=== PATIENT | male | born 1955 | race African-American/Black ===

== ENCOUNTER 2017-05-23 00:37 | Inpatient (IN) ==
--- NOTE | 2017-05-23 01:04 | EKG Report ---
Test Performed on : 05/23/2017 01:01:45 AM Test Reason : side pain Blood Pressure : / mmHG Vent. Rate : 089 BPM Atrial Rate : 089 BPM P-R Int : 198 ms QRS Dur : 082 ms QT Int : 350 ms P-R-T Axes : 039 040 225 degrees QTc Int : 425 ms Normal sinus rhythm. T wave abnormality, consider inferolateral ischemia Abnormal ECG No previous ECGs available Unconfirmed Result
[2017-05-23] MEDS ORDERED: CATAPRES PO ONE (01:10)
[2017-05-23 01:27] LABS: MANUAL DIFF NEEDED? NO
[2017-05-23 01:36] LABS: BASO% 0.3 % (0.0-0.8); EOS# 0.12 X1000 (0.0-0.7); EOS% 1.6 % (0.0-10.0); HEMATOCRIT 40.3 % (42.0-52.0); HEMOGLOBIN 13.7 g/dL (14.0-18.0); IMM GRAN# 0.02 X1000 (0.0-0.04); IMM GRAN% 0.3 % (0.0-0.5); LYMPH# 3.06 X1000 (1.2-3.4); LYMPH% 40.1 % (20.5-51.1); MCH 28.2 PG (27-31); MCV 83.1 FL (81-99); MONO# 0.52 X1000 (0.11-0.59); MONO% 6.8 % (1.7-9.3); MPV 10.4 FL (7.4-10.4); NEUT% 50.9 % (42.2-75.2); PLT 266 X1000 (130-400); RBC 4.85 XMIL (4.7-6.1)
[2017-05-23] MEDS ORDERED: APRESOLINE IV ONE ×2 (01:47→02:21)
--- NOTE | 2017-05-23 02:00 | PROVIDER DOCUMENTATION ---
This chart was entered by Ayesha Sears Scribe, acting as scribe for Glenn Medel MD. HPI-Musculoskeletal Pain/Inj - GENERAL Chief Complaint: Extremity Pain Stated Complaint: SIDE PAIN Time Seen by Provider: 05/23/17 01:05 Source: patient - HX OF PRESENT ILLNESS-MUSKULOSKELTAL Nature of Presenting Problem: 62 Y/O M presents to ED with Extremity Pain. Pt states that he had onset of pain at 10:30pm states 8/10 pain with leeeft arm pain radiating froon neck down shoulder into fingers. Quality of Pain: reports: aching Severity in ED: moderate Onset/Duration: 4-6 hours ago, this evening Timing: still present Any recent injury?: No Locality of Occurance: Home Similar Symptoms Previously?: No Recently seen or treated by another doctor?: No - UPPER EXTREMITY PAIN/INJURY Extremities Pain Location: shoulder: right, arm: right, hand: right Context / Method of Injury: reports: unknown Associated Symptoms: reports: numbness in upper ext Review of Systems - Adult - REVIEW OF SYSTEMS - ADULT Constitutional: denies: chills, fever Eyes: reports: no symptoms reported Ears, Nose, Mouth & Throat: reports: no symptoms reported Cardiovascular: reports: no symptoms reported Respiratory: reports: no symptoms reported Gastrointestinal: reports: no symptoms reported Genitourinary: reports: no symptoms reported Musculoskeletal: reports: joint pain, muscle aches. denies: bone pain, back pain Integumentary: reports: no symptoms reported Neurological: reports: no symptoms reported Psychiatric: reports: no symptoms reported Endocrine: reports: no symptoms reported Hematologic/Lymphatic: reports: no symptoms reported Allergic/Immunologic: reports: no symptoms reported All Other Systems: Reviewed and Negative Past History - Adult - PAST MEDICAL HISTORY-ADULT Review of Records: reports: Old Records Reviewed, Nursing Assessment Review, Medications Reviewed, Social history reviewed & non-contributory. Major Childhood Illnesses: reports: denies history Cardiovascular: reports: denies history Respiratory: reports: denies history Gastrointestinal: reports: denies history Obstetrical/Gynecological: reports: denies history Genitourinary: reports: denies history Musculoskeletal: reports: denies history Neurological: reports: denies history Endocrine/Immune: reports: denies history Other Conditions: reports: denies history - IMMUNIZATION STATUS Childhood Immunizations: See Nurse Assessment Flu Vaccine: See Nurse Assessment - FAMILY HISTORY Family History: reviewed, not pertinent Physical Exam-Injury Related - Physical Exam-Injury Related General Appearance: appears well, alert, no apparent distress Eyes: PERRL/EOMI, pink conjunctivae, anisocoria Head, Ears, Nose, Mouth & Throat: moist mucous membranes, normal ENT inspection , TMs normal Neck: full range of motion, supple, normal inspection Respiratory: chest non-tender, lungs clear, normal breath sounds Cardiovascular: normal peripheral pulses, regular rate, rhythm Abdominal Exam: non tender, soft Lymphatic: no adenopathy Back Exam: normal inspection Extremity: normal range of motion Integumentary: normal color, warm/dry Neurologic: grossly normal Psych/Mental Status: normal mood/affect, normal thought content, normal thought process, oriented x 3 Progress - PLAN OF CARE/RESULTS Progress/Plan/Lab Results: Vital Signs - 8 hr 05/23/17 00:42 05/23/17 01:10 05/23/17 02:41 Temperature 98.8 F Pulse Rate 88 88 94 H Respiratory Rate 20 21 15 Blood Pressure 212/98 215/124 201/96 O2 Sat by Pulse Oximetry 97 99 99 05/23/17 03:39 05/23/17 03:54 Temperature Pulse Rate 83 83 Respiratory Rate 18 20 Blood Pressure 185/78 156/87 O2 Sat by Pulse Oximetry 99 98 Laboratory Results - last 24 hr 05/23/17 05/23/17 05/23/17 01:20 01:20 01:20 WBC 7.64 RBC 4.85 Hgb 13.7 L Hct 40.3 L MCV 83.1 MCH 28.2 MCHC 34.0 RDW Std Deviation 13.8 Plt Count 266 MPV 10.4 Immature Gran % (Auto) 0.3 Neut % (Auto) 50.9 Lymph % (Auto) 40.1 [place] % (Auto) 6.8 Eos % (Auto) 1.6 Baso % (Auto) 0.3 Immature Gran # (Auto) 0.02 Neut # (Auto) 3.90 Lymph # (Auto) 3.06 [place] # (Auto) 0.52 Eos # (Auto) 0.12 Baso # (Auto) 0.02 Sodium 142 Potassium 3.7 Chloride 108 H Carbon Dioxide 22 L Anion Gap 12 BUN 11 Creatinine 1.2 Estimated GFR/1.73 m2 > 60 BUN/Creatinine Ratio 9 Glucose 257 H Calculated Osmolality 291 Calcium 9.0 Total Bilirubin 0.20 AST 15 ALT 13 Alkaline Phosphatase 80 Creatine Kinase 167 Troponin T Total Protein 7.9 Albumin 4.0 Globulin 4.0 Albumin/Globulin Ratio 1.0 Urine Source Urine Color Urine Clarity Urine pH Ur Specific [place] Urine Protein Urine Ketones Urine Blood Urine Nitrite Urine Bilirubin Urine Urobilinogen Urine Microscopic RBC Urine WBC Urine Microscopic WBC Ur Epithelial Cells Urine Bacteria Urine Glucose 05/23/17 05/23/17 05/23/17 01:20 02:30 03:45 WBC RBC Hgb Hct MCV MCH MCHC RDW Std Deviation Plt Count MPV Immature Gran % (Auto) Neut % (Auto) Lymph % (Auto) [place] % (Auto) Eos % (Auto) Baso % (Auto) Immature Gran # (Auto) Neut # (Auto) Lymph # (Auto) [place] # (Auto) Eos # (Auto) Baso # (Auto) Sodium Potassium Chloride Carbon Dioxide Anion Gap BUN Creatinine Estimated GFR/1.73 m2 BUN/Creatinine Ratio Glucose Calculated Osmolality Calcium Total Bilirubin AST ALT Alkaline Phosphatase Creatine Kinase Troponin T < 0.010 < 0.010 Total Protein Albumin Globulin Albumin/Globulin Ratio Urine Source CLEAN CATCH Urine Color YELLOW Urine Clarity CLEAR Urine pH 6.5 Ur Specific [place] 1.010 Urine Protein 1+(30 mg/dL) A Urine Ketones NEGATIVE Urine Blood TRACE Urine Nitrite NEGATIVE Urine Bilirubin NEGATIVE Urine Urobilinogen NORMAL Urine Microscopic RBC <10 Urine WBC NEGATIVE Urine Microscopic WBC <10 Ur Epithelial Cells <10 Urine Bacteria 1+ Urine Glucose 3+(500 mg/dL) A Orders Category Date Time Status IV [Saline Loc] NOW Care 05/23/17 01:13 Active cxr [CHEST-1 VIEW] [RAD] Stat Exams 05/23/17 01:14 Taken CBC WITH ELECTRONIC DIFF [HEME] Stat Lab 05/23/17 01:20 Completed CK PROFILE [SP CHEM] Stat Lab 05/23/17 01:20 Completed CMP [COMPREHENSIVE METABOLIC PANEL] [CHEM] Stat Lab 05/23/17 01:20 Completed TROPONIN T Stat Lab 05/23/17 01:20 Completed TROPONIN T Stat Lab 05/23/17 03:45 Completed UA NIMS W/REFLEX CULT PL [URINALYSIS] Routine Lab 05/23/17 02:30 Completed Clonidine [Catapres] Med 05/23/17 01:10 Discontinued 0.2 mg PO NOW ONE Hydralazine [Apresoline] Med 05/23/17 01:47 Discontinued 10 mg IV NOW ONE Hydralazine [Apresoline] Med 05/23/17 02:21 Discontinued 10 mg IV NOW ONE Insulin Glargine [Lantus] Med 05/23/17 03:59 Discontinued 50 unit SUBQ NOW ONE Insulin Human Regular [Humulin R] Med 05/23/17 03:47 Discontinued 4 unit SUBQ NOW ONE Nitroglycerin 50 mg/D5w Med 05/23/17 02:52 Active 50 mg in 250 ml IV 10 microgm/min Nitroglycerin Sl [Nitroglycerin] Med 05/23/17 02:44 Discontinued 0.4 mg .ROUTE .STK-MED ONE Nitroglycerin Sl [Nitroglycerin] Med 05/23/17 02:43 Discontinued 0.4 mg SL NOW ONE EKG [EKG] Stat Ther 05/23/17 00:55 Draft EKG [EKG] Stat Ther 05/23/17 02:46 Draft Result Diagrams: 05/23/17 01:20 05/23/17 01:20 - REASSESSMENT Reassessment #1 Time Reassessed: 03:57 Status: improving (pt had improvement of pain, then it recurred, but went away with a nitroglycerin drip. BP improved some with the drip as well) - CONSULTS/PCP/HOSPITALIST Notification #1 *Consult/PCP/Hospitalist*: Dr Colon Time Discussed: 04:21 Reason/Comments: agrees to send to cath, transfer to [facility]2 Consult: Dr Majano Time Discussed: 04:21 (will accept and see about bed) Departure - Departure Date of Disposition Decision: 05/23/17 Time of Disposition Decision: 04:22 DIAGNOSIS: Angina at rest Disposition: HOME 01 Certified Medical Emergency: Emergent Condition: Serious Referrals and Follow-Ups: Alonzo Jeffery MD [Primary Care Provider] - - Critical Care Note This patient required my direct & personal management of CC.: Yes Total Time (mins): 20 Critical Care Statement: This patient required my direct personal management to treat or rule out processes, the absence of which, could potentiallly result in sudden, clinically significant life or limb threatening deterioration. This chart was documented by the indicated scribe, (Ayesha Sears Scribe) and accurately reflects the services I performed and decisions made by me, Glenn Medel MD, as attested by the provider's signature.
--- NOTE | 2017-05-23 02:00 | ED EKG INTERP ---
This chart was entered by Ayesha Sears Scribe, acting as scribe for Glenn Medel MD. EKG Interpretation - EKG Time of EKG reading by physician:: 01:01 EKG Read and Signed by:: Glenn Medel EKG Interpretation (*Must complete 3 of following elements*): Normal Rate: 89 Rhythm: NSR Comments: Abnormal ECG, T wave abnormality, consider inferolateral ischemia This chart was documented by the indicated scribe, (Ayesha Sears Scribe) and accurately reflects the services I performed and decisions made by me, Glenn Medel MD, as attested by the provider's signature.
[2017-05-23 02:37] LABS: AGAP 12; ALKALINE PHOSPHATASE 80 U/L (32-122); BUN 11 mg/dL (8-22); CHLORIDE 108 mmol/L (98-107); COSMO 291; GOT 15 U/L (10-34); GPT 13 U/L (10-44); POTASSIUM 3.7 mmol/L (3.5-5.1); SODIUM 142 mmol/L (136-145); TCO2 22 mmol/L (25-35); TOTAL PROTEIN 7.9 g/dL (6.3-8.3)
[2017-05-23] MEDS ORDERED: NITROGLYCERIN SL ONE (02:43)
[2017-05-23] MEDS ORDERED: NITROGLYCERIN ONE (02:44)
[2017-05-23 02:56] LABS: URINE CULTURE PL NEEDED? NO
--- NOTE | 2017-05-23 03:09 | EKG Report ---
Test Performed on : 05/23/2017 03:06:00 AM Test Reason : arm pain Blood Pressure : / mmHG Vent. Rate : 092 BPM Atrial Rate : 092 BPM P-R Int : 180 ms QRS Dur : 080 ms QT Int : 360 ms P-R-T Axes : 089 025 187 degrees QTc Int : 445 ms Normal sinus rhythm. T wave abnormality, consider inferolateral ischemia Abnormal ECG When compared with ECG of 23-MAY-2017 01:01, (Unconfirmed) No significant change was found Unconfirmed Result
[2017-05-23] MEDS: NITROGLYCERIN 50 MG/D5W 50 MG/250 ML IV.SOLN IV SCH (03:10)
[2017-05-23 03:38] LABS: BILIRUBIN URINE NEGATIVE (NEGATIVE); BLOOD URINE TRACE (NEGATIVE); CLARITY CLEAR (CLEAR); COLOR YELLOW; LEUKOCYTES URINE NEGATIVE (NEGATIVE); NITRITE URINE NEGATIVE (NEGATIVE); PH URINE 6.5; PROTEIN URINE 1+(30 mg/dL) mg/dL (NEGATIVE); UROBILINOGEN URINE NORMAL
[2017-05-23] MEDS ORDERED: HUMULIN R SUBQ ONE (03:47)
[2017-05-23 03:53] LABS: URINE EPITHELIAL CELLS <10 /HPF (<10); URINE RBC <10 /HPF (<10); URINE SOURCE CLEAN CATCH; URINE WBC <10 /HPF (<10)
[2017-05-23] MEDS ORDERED: LANTUS SUBQ ONE (03:59)
[2017-05-23] MEDS ORDERED: SALINE LOCK IV FLUID XX ONE (06:15)
[2017-05-23] MEDS ORDERED: TYLENOL PO PRN (06:15)
[2017-05-23] MEDS ORDERED: ZOFRAN IV PRN (06:15)
--- NOTE | 2017-05-23 06:41 | HISTORY AND PHYSICAL ---
CHIEF COMPLAINT: Left arm pain. PRIMARY CARE PHYSICIAN: Alonzo Jeffery MD HISTORY OF PRESENTING ILLNESS: This is a 62-year-old male with a history of hypertension, diabetes mellitus type 2 and hyperlipidemia. Had initially presented to [place] [facility] with complaint of severe pain in his left arm. He states that it was like a squeezing sensation and it was not subsiding. Patient subsequently had come to [place] [facility] where he was evaluated and it was noted that his blood pressure was markedly elevated. He continued to have persistent left arm pain. He was put on a nitroglycerin drip and his left arm pain seemed to improve. His blood pressure also had improved. Subsequently, his case was discussed with Cardiology by ER physician and the patient was subsequently transferred to [facility] [place] ICU for further evaluation and management. At the time of my examination, he states that his pain in his arm has improved somewhat. He denied having any headache, visual changes, nausea, vomiting, diarrhea, shortness of breath, hemoptysis or weight changes, but states that he still does not feel well. PAST MEDICAL HISTORY: Includes hypertension, diabetes mellitus type 2, hyperlipidemia, GERD. PAST SURGICAL HISTORY: Right knee surgery, right rotator cuff surgery, back surgeries. ALLERGIES: No known drug allergies. CURRENT MEDICATIONS: As listed in MAR. SOCIAL HISTORY: He denies any history of smoking. Admits to social alcohol use. Denies any illicit drug use. FAMILY HISTORY: Positive for coronary artery disease in mother. REVIEW OF SYSTEMS: Twelve point review of systems is listed as in HPI. Other systems negative. PHYSICAL EXAMINATION: GENERAL: Cooperative, friendly male. He is resting more comfortably now. VITAL SIGNS: Temperature 98.8 degrees, pulse 88, respirations 20, blood pressure 212/98. He is saturating 97%. HEENT: Atraumatic, normocephalic. Extraocular movements intact. PERRLA. NECK: Supple. CHEST: Clear to auscultation. CARDIOVASCULAR: Regular rate and rhythm. ABDOMEN: Soft, nontender. Positive bowel sounds. EXTREMITIES: No edema. NEURO: He is awake, alert, oriented x3. : No bladder distention. SKIN: Warm and good turgor. LABORATORIES AND STUDIES: Troponin is 0.010. Sodium 142, potassium 3.7 chloride 108, CO2 22, BUN is 11, creatinine 1.2, glucose is 257. WBC 7.64, hemoglobin 13.7, hematocrit 40.3, platelets is 266,000. ASSESSMENT: A 62-year-old male with a history of hypertension, diabetes mellitus type 2 and hyperlipidemia had presented to the emergency department with 1-day history of acute onset of left arm pain. He was noted to have markedly elevated blood pressure. He was put on a nitroglycerin drip at [place] [facility] and subsequently transferred to [facility] [place] ICU for further evaluation and management. 1. Suspected acute coronary syndrome. 2. Hypertension, uncontrolled. 3. Diabetes mellitus type 2. 4. Hyperlipidemia. PLAN: 1. The patient will be admitted to ICU. 2. We will continue with cardiac workup. Check EKG, serial cardiac enzymes. Have patient continue on aspirin. We will continue patient on a nitroglycerin drip. 3. Cardiology has already been consulted. 4. We will monitor blood pressure closely. 5. We will continue patient on sliding scale insulin regimen. Monitor blood glucose. 6. Restart his home medications. 7. We will put patient on DVT prophylaxis with Lovenox. 8. We will continue to follow and reassess. cc: Luis Daniel Majano MD
[2017-05-23] MEDS: HUMULIN R SUBQ SCH ×4 (07:15→20:41)
--- NOTE | 2017-05-23 07:20 | Diag Imaging Result Doc PS360 ---
EXAM: CHEST-1 VIEW HISTORY: htn/ left arm pain TECHNIQUE: AP portable erect at 0118 COMMENT: There are no previous studies. The heart size is the upper limits of normal. The lungs are clear. IMPRESSION: Borderline cardiomegaly. Electronically signed by Trey Bang 05/23/2017 7:17 AM
[2017-05-23] MEDS: LOVENOX SUBQ SCH (08:28)
[2017-05-23] MEDS ORDERED: CATAPRES PO SCH (09:00)
[2017-05-23] MEDS: ASPIRIN PO SCH (09:31)
[2017-05-23] MEDS: ZYLOPRIM PO SCH (09:32)
[2017-05-23] MEDS: PRAVACHOL PO SCH (09:32)
[2017-05-23] MEDS: TOPROL XL PO SCH ×2 (09:32→20:39)
[2017-05-23] MEDS: PRILOSEC PO SCH (09:32)
[2017-05-23] MEDS ORDERED: DIOVAN PO SCH (11:15)
[2017-05-23] MEDS ORDERED: LEXISCAN ONE (12:09)
--- NOTE | 2017-05-23 14:00 | CONSULTATION ---
DATE OF CONSULTATION: 05/23/2017 IMPRESSION: 1. Persistent left arm discomfort for an hour and a half last night. Overall presentation atypical for myocardial ischemia. Patient previously had chest discomfort 2 years ago when he had angioplasty of a diagonal branch. He has not had recurrence of such chest discomfort. 2. Hypertension with blood pressure elevated on presentation. 3. Atherosclerotic coronary disease. Coronary angiography in 2014 for evaluation of chest discomfort demonstrated moderate 40%-50% left anterior descending stenosis and a severe stenosis in a diagonal branch which was calcified. He underwent percutaneous coronary intervention on diagonal branch. He has not had recurrence of such chest discomfort. 4. Type 2 diabetes mellitus. 5. Gastroesophageal reflux. 6. Hyperlipidemia. 7. Obesity. 8. Degenerative disease of the spine with history of 2 previous upper thoracic spine surgeries, 9. Bilateral carpal tunnel. RECOMMENDATIONS: 1. Patient relates his recent discovery of cough related to LAURY inhibitor and was started on which is expensive. Will switch him to valsartan. Continue thiazide and diltiazem. 2. Reassess coronary status with Lexiscan sestamibi study. 3. If Lexiscan study stable, consider further evaluation in direction of radiculopathy, possible from cervical spine disease or carpal tunnel. HISTORY: This 62-year-old, -[place] male with past history of obesity, hypertension, hyperlipidemia, type 2 diabetes mellitus and previous angioplasty of severe stenosis in 1st diagonal 2 years ago was admitted to the emergency room last night for evaluation of left arm discomfort and hypertension. He relates he had chest discomfort 2 years ago and evaluation culminated in coronary angiography and angioplasty of severe calcified stenosis in 1st diagonal. He has not had recurrence of chest discomfort since that time. He has been followed by Dr. Kidd. He has had recent change in his antihypertensive medications with discontinuation of lisinopril/hydrochlorothiazide and initiation of samples at 80 mg daily. Last night, just as he was lying down for bed, he started to have left arm discomfort. Discomfort extended all the way to his fingertips and seemed to get worse when he was lying down. Discomfort persisted, and he came to the emergency room for evaluation. He was found to be hypertensive. There was no chest pain. He was started on intravenous nitroglycerin and transferred from [facility] room to [facility] ICU. His chest symptoms lasted at least 90 minutes. He is admittedly somewhat sedentary. PAST MEDICAL HISTORY: 1. Obesity. 2. Hypertension. 3. Type 2 diabetes mellitus. 4. Hyperlipidemia. 5. Atherosclerotic coronary disease as outlined above. 6. Bilateral carpal tunnel syndrome. 7. Gastroesophageal reflux disease. 8. Gout. 9. Degenerative disease of the spine. PAST SURGICAL HISTORY: Two arthroscopic right knee procedures, right rotator cuff surgery, and two upper thoracic spine surgical procedures. ALLERGIES: He is allergic or intolerant to lisinopril which causes cough. MEDICATIONS: Prior to admission as listed. 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 He does not smoke. FAMILY HISTORY: Positive for coronary artery disease. REVIEW OF SYSTEMS: Pulmonary: Negative. Gastrointestinal: Noteworthy for gastroesophageal reflux but, otherwise, negative. Constitutional: Negative. Remaining review of systems negative with 14 total systems reviewed. PHYSICAL EXAMINATION: General: This is an obese, middle-aged, -[place] male in no distress. Vital Signs: As recorded. Blood pressure 181/83, heart rate 80 and regular with ECG monitor showing sinus rhythm. HEENT: Extraocular movements intact. Mucous membranes are moist. Neck: Supple without jugular venous distention. No carotid bruits. Chest: Clear to auscultation. Cardiac: A regular rate and rhythm without appreciable murmur or gallop. Abdomen: Soft, nontender. Bowel sounds are normal. Extremities: Without edema. Neurologic: Exam reveals him to be alert and fully oriented. Speech is fluent. Moves all 4 extremities equally well. Skin: Warm and dry. Psychiatric: Exam reveals his mood to be appropriate. DIAGNOSTIC DATA: ECG demonstrates sinus rhythm and nonspecific ST and T-wave abnormality. Serial troponins are normal. cc: MD Go Van MD
[2017-05-23] MEDS: CARDIZEM CD PO SCH (14:05)
[2017-05-23] MEDS: PLAVIX PO SCH (14:05)
[2017-05-23] MEDS: HYDROCHLOROTHIAZIDE PO SCH (14:05)
[2017-05-23] MEDS ORDERED: DIOVAN PO ONE (18:41)
--- NOTE | 2017-05-23 19:20 | Diag Imaging Result Document ---
PROCEDURE NAME: MYOCARDIAL PERF SCAN, STR/REST - 05/23/2017 INDICATION: A 62-year-old male with coronary heart disease, chest pain, previous angioplasty to diagonal branch of LAD. STUDY: Rest-stress Lexiscan myocardial perfusion study. DESCRIPTION: The patient came into the Nuclear Lab, received a rest injection of technetium 99 sestamibi 15 millicuries. Multiple tomographic views of the cardiac structure were obtained at rest. Subsequently the patient underwent infusion of Lexiscan 0.4 mg. At peak infusion, injected with technetium 99 sestamibi 45.7 millicuries. Multiple tomographic views of the cardiac structure were obtained following the completion of the protocol. SUMMARY OF ELECTROCARDIOGRAPHIC PORTION OF STUDY: Resting electrocardiogram showed sinus rhythm, rate 71 beats per minute. Resting blood pressure 152/81. Resting ECG shows diffuse repolarization abnormality consistent with LVH. The heart rate increased to 88 beats per minute. Blood pressure went up to 170/73. The patient reported no chest pain, shortness of breath, or palpitations. EKG showed no significant changes. Following the completion of the infusion, the heart rate and blood pressure returned back to baseline. IMPRESSION: In summary, the electrocardiographic response to infusion of Lexiscan is deemed to be inconclusive due to the presence of extensive repolarization abnormality at rest. SUMMARY OF MYOCARDIAL PERFUSION PORTION OF STUDY: Poststress tomographic views of the left ventricle showed a very subtle and mild decreased uptake of radiotracer in the basal to mid anterolateral segment of the left ventricle. The rest images suggest reversibility of this defect. The polar plots revealed the same. There is a suggestion of inducible ischemia of mild degree involving the basal to mid anterolateral portion of the left ventricle. This would correspond to a limited area of myocardium. Again, this finding is very subtle. No significant scar is noted. Gated SPECT shows normal left ventricular systolic function. Ejection fraction estimated at 67% with normal ventricular volumes. No wall motion abnormality. Lung-heart ratio is normal. TID is normal. IMPRESSION: In summary, this study showed: 1. Inconclusive electrocardiographic response to infusion of Lexiscan. 2. Mildly abnormal poststress myocardial perfusion scan. There is a scintigraphic suggestion of inducible ischemia of mild degree involving the basal to mid anterolateral portion of the left ventricle. 3. Normal left ventricular systolic function. Ejection fraction estimated at 67% with normal ventricular volumes. No wall motion abnormality. Clinical correlation recommended. cc: MD Yumiko Davies PA
--- NOTE | 2017-05-23 20:34 | ECHO REPORT ---
ORDER DATE: 05/23/2017 INTERPRETING PHYSICIAN: Dr. Colon REQUESTING PHYSICIAN: CLINICAL INDICATIONS: Chest pain, coronary heart disease. M-MODE MEASUREMENTS: Right ventricle: 2.6 cm. Left ventricle end diastole: 4.3 cm. Left ventricle end systole: 2.9 cm. Posterior wall: 1.2 cm. Interventricular septum: 1.2 cm. Left atrium: 3.7 cm. Aortic root: 2.9 cm. SUMMARY OF 2-DIMENSIONAL IMAGING: The left ventricular function is normal. Ejection fraction estimated at 66%. There is no wall motion abnormality. The right ventricle appears to be normal. The pulmonic valve looks normal. Color flow mapping unremarkable. The aortic valve has 3 cusps. Color flow mapping unremarkable. The mitral valve looks normal. Color flow mapping unremarkable. Pulse wave doppler interrogation of mitral inflow shows that the E/A ratio is normal. Tissue Doppler of septal and lateral mitral annulus averages 6.5 cm. No diastolic dysfunction is present. The tricuspid valve looks normal. Color flow mapping unremarkable. There is no pericardial effusion, masses or thrombus. There is no pulmonary hypertension. IMPRESSION: In summary, this study shows: 1. Excellent left ventricular systolic function. Ejection fraction 66%. 2. No evidence of any significant valvular abnormality. 3. Normal diastolic function. 4. Normal pulmonary pressure. cc: MD Luis Daniel Davies MD Cesar Garcia-Rodriguez, MD MTDD
[2017-05-23] MEDS: CATAPRES PO SCH (20:39)
[2017-05-24] MEDS: NITROGLYCERIN 50 MG/D5W 50 MG/250 ML IV.SOLN IV SCH (02:11)
[2017-05-24 05:54] LABS: MANUAL DIFF NEEDED? NO
[2017-05-24 05:57] LABS: BASO% 0.4 % (0.0-0.8); EOS# 0.15 X1000 (0.0-0.7); EOS% 2.1 % (0.0-10.0); HEMATOCRIT 40.1 % (42.0-52.0); HEMOGLOBIN 13.5 g/dL (14.0-18.0); IMM GRAN# 0.02 X1000 (0.0-0.04); IMM GRAN% 0.3 % (0.0-0.5); LYMPH# 2.76 X1000 (1.2-3.4); LYMPH% 38.4 % (20.5-51.1); MCH 28.1 PG (27-31); MCHC 33.7 g/dL (33-37); MCV 83.4 FL (81-99); MONO# 0.54 X1000 (0.11-0.59); MONO% 7.5 % (1.7-9.3); MPV 10.4 FL (7.4-10.4); NEUT% 51.3 % (42.2-75.2); PLT 248 X1000 (130-400); RBC 4.81 XMIL (4.7-6.1)
[2017-05-24] MEDS: PRILOSEC PO SCH (06:02)
[2017-05-24] MEDS: LOVENOX SUBQ SCH (06:02)
[2017-05-24] MEDS: HUMULIN R SUBQ SCH ×4 (06:03→22:12)
[2017-05-24 06:10] LABS: HDL 36 mg/dL (35-55); LDL 43 mg/dL; TRIGLYCERIDES 177 mg/dL (39-160); VLDL 35 mg/dL
[2017-05-24] MEDS: PRAVACHOL PO SCH (08:57)
[2017-05-24] MEDS: ASPIRIN PO SCH (08:57)
[2017-05-24] MEDS: CARDIZEM CD PO SCH (08:57)
[2017-05-24] MEDS: TOPROL XL PO SCH (08:58)
[2017-05-24] MEDS: PLAVIX PO SCH (08:58)
[2017-05-24] MEDS: ZYLOPRIM PO SCH (08:58)
[2017-05-24] MEDS: CATAPRES PO SCH (08:58)
[2017-05-24] MEDS: HYDROCHLOROTHIAZIDE PO SCH (08:58)
[2017-05-24] MEDS: DIOVAN PO SCH (08:59)
[2017-05-24] MEDS ORDERED: HYDROCHLOROTHIAZIDE PO SCH (10:30)
[2017-05-24] MEDS ORDERED: COREG PO SCH (10:30)
[2017-05-24] MEDS ORDERED: HYDROCHLOROTHIAZIDE PO ONE (11:00)
[2017-05-24 11:39] LABS: HEMOGLOBIN A1C 8.3 % (4.8-6.0)
--- NOTE | 2017-05-24 12:40 | PROGRESS NOTE ---
DATE: 05/24/2017 SUBJECTIVE: Patient reports feeling fine. No chest pain. No left arm pain. No shortness of breath. No nausea or vomiting. OBJECTIVE: Vital Signs: Temperature 98.6, heart rate 71, respiratory 17, blood pressure 171/107. O2 saturation 97% on room air. General Examination: This is a 62-year-old -[place] male lying in bed in no acute distress. HEENT: Head is normocephalic and atraumatic. Anicteric sclerae and pale conjunctivae. Mucous membranes moist. Neck supple. No JVD noted. No carotid bruits. No lymphadenopathy. No thyromegaly. Cardiovascular: S1, S2 heard. No murmurs, gallops, or rubs. Regular rate and rhythm. Respiratory clear bilaterally to auscultation. No work of breathing or using accessory muscles. Abdomen is soft, nontender to palpation. Bowel sounds present. No organomegaly. Extremities: No clubbing, cyanosis, or edema. Peripheral pulses present in both legs. Neurologic: Patient is alert and oriented x3. Able to move her extremities. Cranial nerves 2-12 grossly normal. LABORATORY DATA: Reviewed. ASSESSMENT AND PLAN: 1. Chest pain. That condition is resolved. The patient underwent a stress test which was basically unremarkable. At this point, Cardiology is not planning to do any more workup. 2. Uncontrolled hypertension. Blood pressure is still high in the range of 170s and 180s with also high diastolic blood pressure between 90s and 100. At this time, we are going to make some changes to his current medications and see how he does tomorrow. 3. Diabetes mellitus, type 2. We will continue with the sliding scale insulin. 4. Hyperlipidemia, well controlled. We will continue with home medications. cc: Go Dodson MD
[2017-05-24] MEDS ORDERED: CATAPRES PO PRN (13:57)
[2017-05-24] MEDS: CATAPRES PO PRN ×2 (14:33→23:56)
--- NOTE | 2017-05-24 16:40 | PROGRESS NOTE ---
DATE: 05/24/2017 SUBJECTIVE: Patient continues without chest discomfort, dyspnea, or arm discomfort. Blood pressure has remained elevated and changes were made this morning. OBJECTIVE: Vital Signs: Blood pressure 198/96, heart rate 62 and regular. ECG monitor showing sinus rhythm. Oxygen saturation 99% on room air. Neck: There is no significant jugular venous distention. Chest: Clear to auscultation. Cardiac: Reveals a regular rate and rhythm, without appreciable murmur or gallop. There is no evidence of peripheral edema. DIAGNOSTIC DATA: Lexiscan sestamibi study demonstrates a small equivocal area of reversibility in the basal to mid anterolateral region. Left ventricular ejection fraction normal. This would appear to constitute a low risk study, but potentially may indicate restenosis or occlusion of previously treated diagonal branch occlusion with angioplasty in the past. IMPRESSIONS: 1. Atherosclerotic coronary artery disease. Lexiscan sestamibi result is low risk, but does not entirely exclude some inducible ischemia in distribution of diagonal branch. Hewitt of ischemia would appear quite limited. 2. Left arm discomfort atypical for myocardial ischemia. Despite persistent discomfort for 1-1/2 hours, serial troponins are normal and discomfort would seem more likely to be noncardiac, possibly related to radiculopathy. 3. Hypertension with elevated blood pressure. The patient's compliance with sodium restriction is suspect. 4. Type 2 diabetes mellitus. 5. Hyperlipidemia. RECOMMENDATIONS: 1. Would continue on increased dose of valsartan 320 mg daily. 2. Increase hydrochlorothiazide to 50 mg daily. 3. Switch metoprolol to carvedilol 25 mg twice daily and taper off clonidine. 4. Importance of sodium restriction discussed with the patient. 5. Continue medical management of patient's coronary atherosclerosis at this time. Once blood pressure better controlled, it is reasonable for him to be discharged home. His regular fixed income manager is Dr. Kidd and followup with him should be arranged in a few weeks. cc: MD Go Van MD
[2017-05-24] MEDS: LANTUS SUBQ SCH (22:11)
[2017-05-24] MEDS: APRESOLINE PO SCH (22:12)
[2017-05-25] MEDS: CATAPRES PO PRN ×3 (01:07→18:38)
[2017-05-25] MEDS ORDERED: APRESOLINE IV ONE (01:24)
[2017-05-25] MEDS: LOVENOX SUBQ SCH (06:16)
[2017-05-25] MEDS: HUMULIN R SUBQ SCH ×4 (06:16→22:01)
[2017-05-25] MEDS: APRESOLINE PO SCH ×3 (06:16→22:02)
[2017-05-25] MEDS: PRILOSEC PO SCH (06:16)
[2017-05-25] MEDS: HYDROCHLOROTHIAZIDE PO SCH (09:32)
[2017-05-25] MEDS: DIOVAN PO SCH (09:32)
[2017-05-25] MEDS: COREG PO SCH ×2 (09:32→22:01)
[2017-05-25] MEDS: ASPIRIN PO SCH (09:32)
[2017-05-25] MEDS: PRAVACHOL PO SCH (09:32)
[2017-05-25] MEDS: PLAVIX PO SCH (09:33)
[2017-05-25] MEDS: ZYLOPRIM PO SCH (09:34)
[2017-05-25] MEDS: NORVASC PO SCH ×2 (09:50→22:02)
--- NOTE | 2017-05-25 11:27 | PROGRESS NOTE ---
DATE: 05/25/2017 SUBJECTIVE: Patient reports feeling fine. No chest pain reported. No shortness of breath. No nausea or vomiting. OBJECTIVE: Vital Signs: Temperature 98.3 degrees, heart rate 84, respiratory rate 16, blood pressure 175/84. O2 saturation 93% on room air. General Examination: This is a 62-year-old male, lying in bed, in no acute distress. HEENT: Head is normocephalic, atraumatic. Anicteric sclerae and pale conjunctivae. Mucous membranes moist. Neck: Supple. No JVD noted. No carotid bruits. No lymphadenopathy. No thyromegaly. Cardiovascular: S1-S2 heard. No murmurs, gallops, or rubs. Regular rate and rhythm. Respiratory: Clear bilaterally to auscultation. No work of breathing or using accessory muscles. Abdomen: Soft, nontender to palpation. Bowel sounds present. No organomegaly. Extremities: No clubbing, cyanosis, or edema. Peripheral pulses present in both legs. Neurological: The patient is alert and oriented x3. Moves 4 extremities. Cranial nerves 2-12 grossly normal. LABORATORY DATA: Reviewed. ASSESSMENT AND PLAN: 1. Chest pain. That condition is completely resolved. Stress test was low risk. No further workup planned by Cardiology. 2. Uncontrolled hypertension. 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 So we have made some changes to his medications. Namely we have started him on Coreg 25 mg p.o. b.i.d. Also, we have stopped Cardizem CD and started him amlodipine 5 mg p.o. b.i.d. and also hydrochlorothiazide has been increased to 50 mg daily. 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 3. Diabetes mellitus type 2. We will continue with the sliding scale insulin. 4. Hyperlipidemia. Well controlled. We will continue with home medications. cc: Go Dodson MD
--- NOTE | 2017-05-25 20:43 | PROGRESS NOTE ---
DATE: 05/25/2017 SUBJECTIVE: Patient continues without chest discomfort, arm discomfort, or dyspnea on room air. OBJECTIVE: Vital signs: Blood pressure 174/95. Heart rate 83 and regular. Neck: There is no significant jugular venous distention. Chest: Clear to auscultation. Cardiac: Exam reveals a regular rate and rhythm without appreciable murmur or gallop. There is no evidence of peripheral edema. IMPRESSION: 1. Recent left arm discomfort. The patient has not had chest discomfort. No evidence of myocardial insulin on serial cardiac enzymes. Stress myocardial perfusion imaging suggests limited ischemic burden. Continued medical management appears most reasonable. 2. Hypertension. Blood pressure is still elevated. Agree with changes made with increase in thiazide, addition of carvedilol, and maximum dose valsartan. Switching to amlodipine 10 mg daily also appropriate. 3. Type 2 diabetes mellitus. 4. Hyperlipidemia. RECOMMENDATIONS: 1. Continue current cardiovascular regimen unchanged with changes made by Dr. Gamboa. 2. Continue medical management of coronary disease. cc: MD Go Van MD
[2017-05-25] MEDS: LANTUS SUBQ SCH (22:01)
[2017-05-26] MEDS: CATAPRES PO PRN (01:25)
[2017-05-26] MEDS: PRILOSEC PO SCH (05:42)
[2017-05-26] MEDS: LOVENOX SUBQ SCH (05:42)
[2017-05-26] MEDS: APRESOLINE PO SCH (05:42)
[2017-05-26] MEDS: HUMULIN R SUBQ SCH (05:43)
[2017-05-26 08:16] VITALS: BP 143/72
[2017-05-26] MEDS: PLAVIX PO SCH (09:37)
[2017-05-26] MEDS: NORVASC PO SCH (09:37)
[2017-05-26] MEDS: ASPIRIN PO SCH (09:37)
[2017-05-26] MEDS: PRAVACHOL PO SCH (09:37)
[2017-05-26] MEDS: COREG PO SCH (09:37)
[2017-05-26] MEDS: DIOVAN PO SCH (09:37)
[2017-05-26] MEDS: HYDROCHLOROTHIAZIDE PO SCH (09:37)
[2017-05-26] MEDS: ZYLOPRIM PO SCH (09:38)
--- NOTE | 2017-05-27 09:31 | DISCHARGE SUMMARY ---
ADMISSION DATE: 05/23/2017 DISCHARGE DATE: 05/26/2017 CONSULTATIONS: Dr. Tanvir Flood with cardiology. PERTINENT PROCEDURES: 1. Echocardiogram showed excellent LV systolic function, EF of 66%. No diastolic dysfunction. 2. Inconclusive electrographic response to infusion of Lexiscan, mildly abnormal post stress myocardial scan suggestive of inducible ischemia of mild degree involving the basal to mid anterolateral portion of the left ventricle. DISCHARGE DIAGNOSES: 1. Chest pain status post stress test, resolved. 2. Uncontrolled hypertension, improving. Patient has had several medication adjustments. Follow up with Dr. Kidd, his primary skiver box toe, in 4 weeks. 3. Diabetes mellitus type 2. Continue home medications. 4. Hyperlipidemia, controlled. Continue with statin. HOSPITAL COURSE: Briefly, Mr. Keene is a 62-year-old male with a history of hypertension, diabetes mellitus type 2, and hyperlipidemia who initially presented to [facility] ED with complaint of severe pain in his left arm. He felt like it was a squeezing sensation and was not subsiding. Upon evaluation, his blood pressure was markedly elevated. He continued to have persistent left arm pain. He was put on a nitroglycerin drip and his left arm pain seemed to improve as well as his blood pressure. Subsequently, the case was discussed with cardiology and the ER physician. The patient was transferred to [facility] ICU for evaluation and management. Had a full set of cardiac enzymes that were negative. He underwent a Lexiscan that showed no evidence of a myocardial insult with his enzymes and his stress test suggested limited ischemia burden. Patient was able to get off his nitroglycerin drip. He had add-on's and changes to his p.o. blood pressure medications. He is now stable and appropriate for discharge home today to follow up with Dr. Kidd in 4 weeks. He is currently chest pain free. VITAL SIGNS: Temperature is 98 degrees, heart rate 92, respirations 18, blood pressure 143/72, O2 is 97% on room air. DISCHARGE DIET: Healthy heart, low sodium. DISCHARGE MEDICATIONS: 1. Allopurinol 300 mg p.o. daily. 2. Norvasc 5 mg p.o. b.i.d. 3. Aspirin 325 mg p.o. daily. 4. Coreg 25 mg p.o. b.i.d. 5. Plavix 75 mg p.o. daily. 6. Glimepiride 4 mg p.o. daily. 7. Apresoline 10 mg p.o. t.i.d. 8. Hydrochlorothiazide 50 mg p.o. daily. 9. Lantus 50 units subcutaneous at bedtime. 10. Actos 50 mg p.o. daily. 11. Potassium chloride 20 mEq p.o. at bedtime. 12. Pravachol 40 mg p.o. daily. 13. Janumet 5/500 one tablet p.o. b.i.d. 14. Diovan 320 mg p.o. daily. FOLLOWUP: The patient is being discharged home with self care. He will follow up with his primary skiver box toe, Dr. Kidd, in 4 weeks, as well as his primary care physician, Dr. Alonzo Jeffery, in 1-2 weeks. The patient has been educated on a healthy heart, low-sodium diet as well as his medication changes. The patient can return to the ED for any worsening of symptoms. Dictated by VICKEY Rao for Go Dodson MD cc: MD Alonzo Salomon MD
== END 2017-05-26 10:08 | disposition home or self-care (01) ==
LOC: P.ED 00:37 → SUATTDRO 00:38 → ICU 00:38 → 4N 05-24 18:07
PROVIDERS: ADMIT Internal Medicine; ATTEND Internal Medicine